=== PATIENT | female | born 1950 | race Asian ===

== ENCOUNTER 2017-12-01 09:09 | Emergency (ER) | payer BC, OTHER ==
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
[2017-12-01 09:35] VITALS: TEMP 98; BMI 28.9
[2017-12-01 11:42] VITALS: BP 129/81; PULSE 58
[2017-12-01] MEDS ORDERED: DIPHTH,PERTUSS(ACELL),TET 0.5 ML DISP.SYRIN IM ONE (11:46)
== END 2017-12-01 12:12 | disposition home or self-care (01) ==
LOC: JER 09:09
PROC: 3E0234Z Introduction of Serum, Toxoid and Vaccine into Muscle, Percutaneous Approach (ICD-10-PCS; principal; 2017-12-01)
DX: S09.90XA Unspecified injury of head, initial encounter (principal); Y04.2XXA Assault by strike against or bumped into by another person, initial encounter; Y93.89 Activity, other specified; Y92.9 Unspecified place or not applicable
CPT/HCPCS: 70450-TC; 72125-TC; 90471; 90715; 99282-25